=== PATIENT | male | born 1980 | race Caucasian/White ===

== ENCOUNTER 2021-05-03 19:47 | Emergency (ER) | payer OTHER, SELFPAY ==
[2021-05-03 19:49] VITALS: BP 136/86; PULSE 112; RESP 20; TEMP 36.6; O2SAT 93; BMI 21.7
[2021-05-03 20:51] VITALS: BP 136/86; PULSE 91; RESP 23; TEMP 36.6; O2SAT 93
[2021-05-03 21:00] VITALS: BP 142/69; PULSE 96; RESP 23; TEMP 36.7; O2SAT 92
--- NOTE | 2021-05-03 21:08 | RAD_ITS ---
INDICATION: SOB EXAMINATION/TECHNIQUE: X-RAY - XR Chest 1 View COMPARISON: None. FINDINGS: Diffuse bilateral airspace opacities. The cardiomediastinal silhouette is unremarkable. No pleural effusion or pneumothorax. No acute osseous abnormalities. RAD/Chest 1 View IMPRESSION: Diffuse bilateral airspace opacities concerning for infection. Electronically Signed: Mil Almazan MD at 22:02 EDT Tel , Service support ,
[2021-05-03 21:15] LABS: Absolute Lymphocyte Count 0.77 X10^3/uL (0.83-4.51); Absolute Neutrophil Count 4.1 X10^3/uL (2.0-7.7); Basophil# 0.01 X10^3/uL; Basophil% 0.2 % (0-1); Hematocrit 41.3 % (40-54); Hemoglobin 14.4 g/dL (13.0-16.5); Lymphocyte # 0.77 X10^3/ul (0.83-4.51); Lymphocyte % 14.8 % (19-41); Mean Corp Hgb Conc 34.9 g/dL (32-36); Mean Corpuscular Hgb 29.3 pg (27.0-32.0); Mean Corpuscular Volume 84.1 fL (80-94); Mean Platelet Vol. 10.7 fl (6.2-12.0); Monocyte# 0.32 X10^3/uL; Monocyte% 6.1 % (0-10); NRBC Flagged by Analyzer 0 % (0-5); Neutrophil # 4.09 X10^3/uL (2.7-7.7); Neutrophil % 78.5 % (47-70); Platelet Count 185 K/mm3 (150-450); RBC Distribution Width SD 43.3 fl (35.1-43.9); Red Blood Count 4.91 M/mm3 (4.6-6.2); White Blood Count 5.2 K/mm3 (4.4-11.0)
[2021-05-03 21:26] LABS: ALB/GLOB Ratio 0.8 RATIO (0.9-2.4); AST(SGOT) 20 U/L (15-37); Alanine Aminotransfer ALT/SGPT 38 U/L (16-61); Albumin, Serum 3.6 g/dL (3.2-5.0); Alkaline Phosphatase 66 U/L (45-117); Anion Gap 6 (5-15); BUN 19 mg/dL (7-18); BUN/Creat Ratio 16.4 RATIO (10-20); Calcium,Total 8.7 mg/dL (8.5-10.1); Chloride 101 mmol/L (98-107); Creatinine, Serum 1.16 mg/dL (0.70-1.30); EST Glomerular Filtration Rate 74 mL/min (>60); Est Glom Filt Rate - Afr Amer 90 mL/min (>60); Estimated Creatinine Clearance 87.76 ml/min; Globulin 4.3 g/dL (2.2-4.2); Glucose 271 mg/dL (74-106); Potassium 3.7 mmol/L (3.5-5.1); Protein, Total 7.9 g/dL (6.4-8.2); Sodium Level 134 mmol/L (136-145)
--- NOTE | 2021-05-03 22:04 | EX.ED.DYSGE1 ---
HPI History of Present Illness Chief Complaint: General Illness Informant: patient Narrative Narrative: Patient is a 41-year-old male with history of hypertension presenting from home for concern of hypoxia. Patient was diagnosed with Covid 19 infection on 04/25. He started with fever and sore throat. Patient continued to have GI symptoms include decreased appetite, diarrhea and some dry heaves this morning. His father was currently hospitalized for Covid at [place]. He checked his oxygen at home and it was 88% so they came in to be evaluated further. Patient currently has no complaints. He has been taking [id number] Tylenol and ibuprofen for symptoms. [facility] Medical History Hypertension Home Medications lisinopril 40 mg PO DAILY 05/03/21 [History Last Taken Unknown] Allergy/AdvReac Type Severity Reaction Status Date / Time diphenhydramine Allergy Other Verified 05/03/21 19:49 [[facility] Social History Smoking Status: Never smoker ROS ROS ED Constitutional Constitutional ED: Reports chills, fever(s) and sweats Eyes Eyes: Denies change in vision ENT ENT ED: Reports sore throat; Denies ear pain or rhinorrhea Cardiovascular Cardiovascular: Denies chest pain or palpitations Respiratory/Chest Respiratory/Chest: Reports cough; Denies dyspnea or dyspnea on exertion Gastrointestinal Gastrointestinal: Reports diarrhea, nausea and vomiting; Denies abdominal pain Genitourinary Genitourinary ED: Denies dysuria Musculoskeletal Musculoskeletal: Reports myalgias; Denies arthralgias Integumentary Denies rash Neurologic Neurologic: Denies headache(s) or weakness EXAM Physical Exam Const Vital Signs: 05/03/21 19:49 05/03/21 20:51 05/03/21 20:53 Temperature 97.8 F 97.8 F Temperature Source Temporal Oral Pulse Rate 112 H 91 Respiratory Rate 20 H 23 H Respiratory Effort Normal Non-Labored Respiratory Pattern Normal Blood Pressure 136/86 H 136/86 H Blood Pressure Mean 102 102 Pulse Ox 93 93 Oxygen Delivery Method Room Air Room Air 05/03/21 21:00 05/03/21 22:08 Temperature 98.1 F Temperature Source Oral Pulse Rate 96 90 Respiratory Rate 23 H 18 Respiratory Effort Respiratory Pattern Blood Pressure 142/69 H Blood Pressure Mean 93 Pulse Ox 92 92 Oxygen Delivery Method Room Air Room Air Positive well nourished and well developed General Appearance ED: well developed HEENT Reports TM's clear and moist mucous membranes Tympanic Membrane ED: Yes TM's clear Eyes PERRL and EOMs intact bilaterally Neck supple Chest Wall inspection of chest normal Resp normal respiratory effort Effort and Inspection: Negative for retractions or pain with movement Auscultation: diminished lung sounds; Negative for wheezes Cardio regular rate, regular rhythm and no murmurs GI normal to inspection, nondistended, normoactive bowel sounds Back/Spine no CVA tenderness Extremity normal to inspection Neuro oriented x3 Sensorium / Orientation: alert Motor Exam: Negative for general weakness Psych mental status grossly normal Skin no rashes or lesions noted MDM MDM MDM Narrative Medical decision making narrative: Patient evaluated for increased fatigue associated with COVID-19 infection. On arrival he is tachycardic and has a low pulse ox. He does have desaturation to 85% on room air with ambulation. Patient is a candidate for home O2. He does not have any obvious findings consistent with secondary pneumonia such as worsening fever or leukocytosis. Patient is set up for home O2 and started on Decadron. Is given first dose in the emergency room. He is counseled return precautions. Patient verbalized agreement understanding this plan. He is given a small fluid bolus in the ER as he has been having diarrhea and decreased oral intake. Lab Data Attestation: I reviewed the patient's lab results. Labs: Laboratory Results - last 24 hr 05/03/21 05/03/21 20:37 20:37 WBC 5.2 RBC 4.91 Hgb 14.4 Hct 41.3 MCV 84.1 MCH 29.3 MCHC 34.9 RDW Std Deviation 43.3 RDW Coeff of [place] 14.0 Plt Count 185 MPV 10.7 Immature Gran % (Auto) 0.400 Neut % (Auto) 78.5 H Lymph % (Auto) 14.8 L [place] % (Auto) 6.1 Eos % (Auto) 0.0 Baso % (Auto) 0.2 Absolute Neuts (auto) 4.1 Absolute Lymphs (auto) 0.77 L Nucleated RBC % 0 Sodium 134 L Potassium 3.7 Chloride 101 Carbon Dioxide 27.0 Anion Gap 6 BUN 19 H Creatinine 1.16 Estim Creat Clear Calc 87.76 Est GFR (MDRD) Af Amer 90 Est GFR (MDRD) Non-Af 74 BUN/Creatinine Ratio 16.4 Glucose 271 H Calcium 8.7 Total Bilirubin 0.90 AST 20 ALT 38 Alkaline Phosphatase 66 Total Protein 7.9 Albumin 3.6 Globulin 4.3 H Albumin/Globulin Ratio 0.8 L Radiography Chest X-Ray - ED: 1 View, Read by ED Physician, Read by Radiologist and - (Multifocal infiltrates-consistent with Covid pneumonia) Diagnostic Testing: Radiology Impression Chest X-Ray 05/03/21 21:08 IMPRESSION: Diffuse bilateral airspace opacities concerning for infection. Electronically Signed: Mil Almazan MD at 22:02 EDT Tel , Service support , Discharge Plan Triage Chief Complaint: General Illness ED Provider: Meryl Raygoza Dx/Rx/DC Orders Clinical Impression: Hypoxia, Pneumonia due to 2019-nCoV Instructions: Coronavirus Disease 2019 (COVID-19): Caring for Yourself or Others Prescriptions: No Action lisinopril 40 mg tablet 40 mg PO DAILY RF: 0 Primary Care Provider: Jaspreet Foote Referrals: Jaspreet Foote MD [Primary Care Provider] - Disposition Disposition: Home, Self Care
[2021-05-03 22:07] VITALS: O2SAT 92
[2021-05-03 22:08] VITALS: PULSE 90; RESP 18; O2SAT 92
--- NOTE | 2021-05-03 22:38 | CM.ED ---
SOCIAL WORK Referral Source: Dr. Raygoza Reason for Consult: Home 02-COVID+ Patient requires O2 for home going. Patient in agreement for home O2 to be set up through [employer]. Patient does not have pulse ox at home, one has been provided. [employer] quickscript, positive COVID-19 test result and facesheet faxed and called to [employer]. Assistant [employer] to contact patient. Nurse provided with portable O2 tank from supply closet. RT to review O2 with patient. Case management notified for follow up. Plan: Home Regina Canales MSW, DIRECTOR GLOBAL MEDICAL AFFAIRS
[2021-05-03] MEDS: dexAMETHasone 4 MG Tablet 6 MG PO (22:54)
[2021-05-03 23:32] VITALS: PULSE 80; RESP 16; O2SAT 97
--- NOTE | 2021-05-04 17:08 | CASEMGMT ---
[facility] COVID Home O2 follow-up: This RN BAM attempted to contact pt in follow-up to his discharge from the ED with home O2. Voicemail message was received and a nondescript message was left requesting a return call and informing that another attempt will be made tomorrow. Jack Christensen RN CM
--- NOTE | 2021-05-05 14:10 | CASEMGMT ---
[facility] ED Home O2 Follow-up: This RN phoned pt regarding follow-up from ED discharge with home O2. Pt states he has been doing good, denies any SOB, and states his PO was 94-95% this morning on 2l/min. Pt states he did have some dizziness. States he is drinking water and occasionally gatorade and eating well. Pt states he had a follow-up call with his physician yesterday and has another appointment scheduled for Saturday of next week. Pt states he is not doing much. Pt denies any questions or other concerns at this time. Jack Christensen RN CM
== END 2021-05-03 23:40 | disposition home or self-care (01) ==
PROVIDERS: Emergency Provider Emergency Medicine; PCP Student in an Organized Health Care Education/Training Program
DX: U07.1 COVID-19 (principal); J12.82 Pneumonia due to coronavirus disease 2019; R09.02 Hypoxemia; I10 Essential (primary) hypertension; Z79.899 Other long term (current) drug therapy
CPT/HCPCS: 71045; 80053; 85025; 96360; 99284; J7040; A4216